=== PATIENT | female | born 1935 | race Asian ===

== ENCOUNTER 2018-04-14 09:59 | Outpatient (CLI) | payer MEDICARE, OTHER | END 2018-04-14 10:00 | disposition critical access hospital (66) | LOC: EMS 09:59 | PROVIDERS: ATTEND Surgery | DX: R42 Dizziness and giddiness (principal) | CPT/HCPCS: A0425; A0427 ==

== ENCOUNTER 2018-04-14 10:17 | Emergency (ER) | payer MEDICARE, OTHER ==
[2018-04-14] MEDS ORDERED: MECLIZINE 12.5 MG TABLET PO STA (12:07)
--- NOTE | 2018-04-14 12:09 | ED Physician Documentation ---
PD HPI FOCAL NEURO - Stated complaint Stated Complaint: N/V/WEAKNESS - Chief complaint Chief Complaint: Neuro - History obtained from History obtained from: Patient, Family - History of Present Illness Timing - onset: Today (This is an 83-year-old woman with history of vertigo for a day a few years ago. Today she was at the dentist office and he was laying her back in the recliner and she said and he felt the room spinning associated with severe nausea. She says that it gets much worse if she turns her head and refuses to turn her head because of that. It feels like the episode she had a few years ago. She denies headache, weakness, numbness, or tingling.) Review of Systems Ten Systems: 10 systems reviewed and negative Constitutional: denies: Fever, Chills Cardiac: denies: Chest pain / pressure, Palpitations Respiratory: denies: Dyspnea, Cough GI: reports: Nausea, Vomiting Neurologic: denies: Generalized weakness, Focal weakness, Numbness, Difficulty speaking, Near syncope, Syncope, Seizure, Confused, Altered mental status, Unresponsive, Headache, Head injury, LOC PD PAST MEDICAL HISTORY - Past Medical History GI: Diverticulitis - Past Surgical History Past Surgical History: No - Present Medications Home Medications: Ambulatory Orders Medication Instructions Recorded Confirmed Aspirin Chewable [St Harshil 81 mg PO ONCE 04/14/18 04/14/18 Aspirin] Meclizine HCl 25 mg PO Q6H PRN #20 tab.chew 04/14/18 Ondansetron Odt [Zofran] 4 mg TL Q6H PRN #10 tablet 04/14/18 - Allergies Allergies/Adverse Reactions: Allergies Allergy/AdvReac Type Severity Reaction Status Date / Time cephalexin monohydrate * Allergy Unknown Verified 04/14/18 10:25 [From Keflex] estrogens, conjugated Allergy Unknown Verified 04/14/18 10:25 [From Premarin] nystatin Allergy Unknown Verified 04/14/18 10:25 - Social History Does the pt smoke?: No Smoking Status: Never smoker Does the pt drink ETOH?: No PD ED PE NORMAL - Vitals Vital signs reviewed: Yes - General General: Alert and oriented X 3, No acute distress - HEENT HEENT: PERRL, EOMI - Neck Neck: Supple, no meningeal sign, No bony TTP - Cardiac Cardiac: RRR, No murmur - Respiratory Respiratory: No respiratory distress, Clear bilaterally - Abdomen Abdomen: Non tender - Neuro Neuro: Alert and oriented X 3, deputy sheriff/investigator 2-12 intact Eye Opening: Spontaneous Motor: Obeys Commands Verbal: Oriented GCS Score: 15 - Psych Psych: Normal mood, Normal affect NIHSS - Time Time: 12:05 - Level of Consciousness Level of consciousness: (0) Alert, Keenly responsive LOC Questions: (0) Answers both Q's correct LOC Commands: (0) Performs both correctly - Gaze Best Gaze: (0) Normal - Visual Visual: (0) No loss - Facial Palsy Facial Palsy: (0) Normal, symmetrical movement - Motor Arms (both separate) Motor Arm (right): (0) No drift Motor Arm (left): (0) No drift - Motor Legs (both separate) Motor Leg (right): (0) No drift Motor Leg (left): (0) No drift - Limb Ataxia Limb Ataxia: (0) Absent - Sensory Sensory: (0) Normal - Best Language Best Language: (0) No aphasia - Dysarthria Dysarthria: (0) Normal - Extinction and Inattention (formally neg Extinction and inattention: (0) No abnormality - Total Score/Results Total Score/Result: 0 Results - Vitals Vitals: Vital Signs - 24 hr 04/14/18 04/14/18 04/14/18 10:22 10:26 12:26 Temperature 35.9 C L Heart Rate 60 58 L 59 L Respiratory 12 14 14 Rate Blood Pressure 169/76 H 164/87 H 137/80 H O2 Saturation 94 99 100 Oxygen O2 Source Room air - Labs Labs: Laboratory Tests 04/14/18 04/14/18 12:00 12:00 WBC 8.6 RBC 4.04 L Hgb 12.7 Hct 37.7 MCV 93.2 MCH 31.3 H MCHC 33.6 RDW 13.2 Plt Count 174 MPV 8.2 Neut # (Auto) 7.7 H Lymph # (Auto) 0.4 L [place] # (Auto) 0.4 Eos # (Auto) 0.0 Baso # (Auto) 0.1 Absolute Nucleated RBC 0.00 Nucleated RBC % 0.0 Sodium 141 Potassium 3.6 Chloride 104 Carbon Dioxide 27 Anion Gap 10.0 BUN 12 Creatinine 0.5 Estimated GFR (MDRD) 118 Glucose 121 H Calcium 9.6 Total Bilirubin 0.8 AST 23 ALT 15 Alkaline Phosphatase 76 Total Protein 6.7 Albumin 4.1 Globulin 2.6 Albumin/Globulin Ratio 1.6 Lipase 28 PD MEDICAL DECISION MAKING - ED course ED course: This is an 83-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 It is very related to rotational changes of the head. I did not see nystagmus on initial evaluation, but after the administration of meclizine she was still pretty symptomatic so we tried the Bubba maneuver, she did develop leftward nystagmus with her left ear down with the Bubba maneuver. The Bubba maneuver was slightly helpful but she was still quite symptomatic and this was followed by a very small dose of Reglan and Ativan, Noting that she is pretty small. After this she was feeling much better, she was only slightly sedated. I will asked the nurse to get her up and walk her in the hallway and if she does well we will discharge her with prescription for meclizine and Zofran. Departure - Departure Disposition: 01 Home, Self Care Clinical Impression: Vertigo Condition: Good Record reviewed to determine appropriate education?: Yes Instructions: ED Vertigo Unspecified Prescriptions: Meclizine HCl 25 mg PO Q6H PRN #20 tab.chew PRN Reason: Dizziness Ondansetron Odt [Zofran] 4 mg TL Q6H PRN #10 tablet PRN Reason: Nausea / Vomiting Comments: Call your doctor to arrange a follow-up appointment, make the next available appointment. In the interim, return anytime if worse or if new symptoms develop. Your blood pressure was elevated today on check into the emergency department. This does not mean that you have hypertension, it is a common phenomenon to come to the emergency department and have elevated blood pressure. I recommend that you see your primary care physician within the week to have it rechecked when you are feeling better.
[2018-04-14 12:14] LABS: BASOPHILS # (AUTO) 0.1 10^3/uL (0.0-0.1); BASOPHILS % (AUTO) 0.6 %; EOSINOPHILS % (AUTO) 0.1 %; HGB - HEMOGLOBIN 12.7 g/dL (12.0-16.0); LYMPHOCYTES # (AUTO) 0.4 10^3/uL (1.5-3.5); LYMPHOCYTES % (AUTO) 5.2 %; MEAN CORPUSCULAR HEMOGLOBIN 31.3 pg (27.0-31.0); MEAN CORPUSCULAR HGB CONC 33.6 g/dL (32.0-36.0); MEAN CORPUSCULAR VOLUME 93.2 fL (81.0-99.0); MEAN PLATELET VOLUME 8.2 fL (7.9-10.8); MONOCYTES # (AUTO) 0.4 10^3/uL (0.0-1.0); MONOCYTES % (AUTO) 4.3 %; NEUTROPHILS # (AUTO) 7.7 10^3/uL (1.5-6.6); NEUTROPHILS % (AUTO) 89.8 %; PLT - PLATELET COUNT 174 10^3/uL (130-450); RED BLOOD COUNT 4.04 10^6/uL (4.20-5.40); RED CELL DISTRIBUTION WIDTH 13.2 % (12.0-15.0); WHITE BLOOD COUNT 8.6 x10^3/uL (4.8-10.8)
[2018-04-14 12:27] LABS: ALBUMIN 4.1 g/dL (3.2-5.5); ALBUMIN/GLOBULIN RATIO 1.6 (1.0-2.2); BILIRUBIN,TOTAL 0.8 mg/dL (0.2-1.0); CREATININE 0.5 mg/dL (0.4-1.0); TOTAL PROTEIN 6.7 g/dL (6.7-8.2)
[2018-04-14 13:06] LABS: CALCIUM 9.6 mg/dL (8.5-10.3)
[2018-04-14] MEDS ORDERED: LORazepam 2 MG/ML VIAL IVP STA (13:20)
[2018-04-14] MEDS ORDERED: METOCLOPRAMIDE 10 MG/2 ML VIAL IVP STA (13:20)
[2018-04-14 14:10] VITALS: BP 127/71
== END 2018-04-14 14:14 | disposition home or self-care (01) ==
LOC: EDUNIT# → ED 10:17
DX: R42 Dizziness and giddiness (principal); R03.0 Elevated blood-pressure reading, without diagnosis of hypertension
CPT/HCPCS: 36415; 80053; 83690; 85025; 96374; 99283; 99284; A9270; J2060; J2765

== ENCOUNTER 2021-11-09 15:13 | Outpatient (CLI) | payer MEDICARE, OTHER | END 2021-11-09 15:14 | disposition left against medical advice (07) | LOC: EMS 15:13 | DX: R11.0 Nausea (principal); R51.9 Headache, unspecified ==

== ENCOUNTER 2022-09-29 09:15 | Emergency (ER) | payer MEDICARE, OTHER ==
[2022-09-29 09:37] VITALS: O2SAT 98
--- NOTE | 2022-09-29 09:39 | ED Physician Documentation ---
PD HPI URI - Stated complaint Stated Complaint: COUGHING,PALOMO,DIZZY - Chief complaint Chief Complaint: General - History obtained from History obtained from: Patient - History of Present Illness Timing - onset: Last night, Yesterday Timing details: Abrupt onset, Still present Associated symptoms: Fever, Chills, Nasal congestion, Dry cough, Other (general weakness) Contributing factors: Sick contact (Her is currently hospitalized a few days ago diagnosed with pneumonia and DKA) Improves by: Rest Worsened by: Activity Similar symptoms before: Has not had sx before Review of Systems Constitutional: reports: Chills, Myalgias, Fatigue Nose: reports: Congestion Throat: denies: Sore throat Cardiac: denies: Chest pain / pressure, Palpitations, Pedal edema Respiratory: reports: Dyspnea, Cough, Wheezing GI: denies: Abdominal Pain, Vomiting, Diarrhea Musculoskeletal: denies: Extremity swelling PD PAST MEDICAL HISTORY - Past Medical History Cardiovascular: None Respiratory: None Neuro: None Endocrine/Autoimmune: None GI: Diverticulitis - Past Surgical History Past Surgical History: No - Present Medications Home Medications: Ambulatory Orders Medication Instructions Recorded Confirmed Aspirin Chewable [St Harshil 81 mg PO ONCE 04/14/18 04/14/18 Aspirin] Meclizine HCl 25 mg PO Q6H PRN #20 tab.chew 04/14/18 Ondansetron Odt [Zofran] 4 mg TL Q6H PRN #10 tablet 04/14/18 Albuterol Sulf [Ventolin Hfa 2 puffs INH QID 10 Days #1 each 09/29/22 Inhaler] Amox/Clav 875/125 [Augmentin] 1 each PO BID #10 tablet 09/29/22 Benzonatate [Tessalon] 100 mg PO TID PRN #12 cap 09/29/22 Nirmatrelvir/Ritonavir [Paxlovid] 1 kit PO BID 5 Days #1 kit 09/29/22 - Allergies Allergies/Adverse Reactions: Allergies Allergy/AdvReac Type Severity Reaction Status Date / Time cephalexin monohydrate * Allergy Unknown Verified 04/14/18 10:25 [From Keflex] estrogens, conjugated Allergy Unknown Verified 04/14/18 10:25 [From Premarin] nystatin Allergy Unknown Verified 04/14/18 10:25 - Social History Does the pt smoke?: No Smoking Status: Never smoker Does the pt drink ETOH?: No PD ED PE NORMAL - Vitals Vital signs reviewed: Yes - General General: Alert and oriented X 3, No acute distress, Well developed/nourished - HEENT HEENT: Pharynx benign - Neck Neck: Supple, no meningeal sign, No adenopathy - Cardiac Cardiac: RRR, No murmur - Respiratory Respiratory: No respiratory distress. No: Clear bilaterally (some prolonged expiratory phase. No wheezing per se. ) - Abdomen Abdomen: Soft, Non tender - Derm Derm: Normal color, Warm and dry - Extremities Extremities: No edema, No calf tenderness / cord - Neuro Neuro: Alert and oriented X 3, No motor deficit, Normal speech Results - Vitals Vitals: Vital Signs - 24 hr 09/29/22 09/29/22 09/29/22 09:24 10:26 11:03 Temperature 37 C 37 C Heart Rate 89 88 82 Respiratory 20 16 16 Rate Blood Pressure 144/83 H 140/88 H O2 Saturation 98 98 Oxygen O2 Source Room air - Labs Labs: Laboratory Tests 09/29/22 10:10 Nasal Adenovirus (PCR) NOT DETECTED Nasal B. parapertussis DNA (PCR) NOT DETECTED Nasal Coronavir 229E PCR NOT DETECTED Nasal Coronavir HKU1 PCR NOT DETECTED Nasal Coronavir NL63 PCR NOT DETECTED Nasal Coronavir OC43 PCR NOT DETECTED Nasal Enterovir/Rhinovir PCR NOT DETECTED Nasal Influenza B PCR NOT DETECTED Nasal Influenza A PCR NOT DETECTED Nasal Parainfluen 1 PCR NOT DETECTED Nasal Parainfluen 2 PCR NOT DETECTED Nasal Parainfluen 3 PCR NOT DETECTED Nasal Parainfluen 4 PCR NOT DETECTED Nasal RSV (PCR) NOT DETECTED Nasal B.pertussis DNA PCR NOT DETECTED Nasal C.pneumoniae (PCR) NOT DETECTED Guillermo Human Metapneumo PCR NOT DETECTED Nasal M.pneumoniae (PCR) NOT DETECTED Nasal SARS-CoV-2 (PCR) DETECTED A - Rads (name of study) chest xray Relevant Findings:: Prelim report reviewed (small infiltrate right base could be c/w early pneumonia. ), EMP independent interpretation of test PD Medical Decision Making - ED course Complexity details: reviewed results (Viral PCR positive for COVID. She does have CXR showing possible/likely small infitlrate right base. Concern for concurrent pneumonia. ), considered differential (Sounds like development of a viral type illness. We can test the respiratory panel and in particular for COVID. Her is in the hospital with pneumonia currently. I did not see a viral test on him. Chest x-ray shows possible early pneumonia for this patient.), d/w patient, d/w consultants intern (I did notify the Hospitlaist of the patient result, with patient permission, so that they can consider this for her who is hospitalized. ) Reviewed Lab Results: The chest x-ray has a possible right lower infiltrate. Her oxygenation is good and her vital signs are good. Breathing is adequate. No indications for hospitalization. The viral PCR test is still pending. She would be a potential candidate for Paxlovid if COVID-positive. Departure - Departure Disposition: 01 Home, Self Care Clinical Impression: COVID-19 Pneumonia Qualifiers: Pneumonia type: due to unspecified organism Laterality: right Lung location: lower lobe of lung Qualified Code(s): J18.9 - Pneumonia, unspecified organism Upper respiratory infection Qualifiers: URI type: unspecified URI Qualified Code(s): J06.9 - Acute upper respiratory infection, unspecified Condition: Stable Record reviewed to determine appropriate education?: Yes Prescriptions: Amox/Clav 875/125 [Augmentin] 1 each PO BID #10 tablet Nirmatrelvir/Ritonavir [Paxlovid] 1 kit PO BID 5 Days #1 kit Benzonatate [Tessalon] 100 mg PO TID PRN #12 cap PRN Reason: Cough Albuterol Sulf [Ventolin Hfa Inhaler] 2 puffs INH QID 10 Days #1 each Comments: Your lungs sound clear and your oxygen level is good. However your chest x-ray was read by radiologist as a possible early pneumonia on the right lower area. This could still represent a viral illness commonly. However we would usually cover with antibiotics in case of bacterial. We can improve your breathing and less coughing with the use of the albuterol inhaler 2 puffs 4 times daily. Also benzonatate can help with the cough. Stay well-hydrated. Augmentin antibiotic twice daily for a week for potential bacterial pneumonia. We did do a respiratory viral swab test. The results are still pending at this time. We can call you with the results later this morning when they are available. You can also look up the results on the patient portal. Recheck if not improving well over the next few days and return if worse. I sent your prescriptions to your preferred pharmacy. From the ER here, it would be good for you to go to the inpatient floor to your 's room as the admitting doctor/hospitalist would like to talk to you about him. Forms: PCP List Discharge Date/Time: 09/29/22 11:04
[2022-09-29] MEDS ORDERED: ALBUTEROL 1 PUFF INH STA (10:02)
[2022-09-29] MEDS ORDERED: BENZONATATE 100 MG CAPSULE PO STA (10:02)
--- NOTE | 2022-09-29 10:18 | XRAY Report ---
PROCEDURE: Chest 1 View X-Ray INDICATIONS: cough/dyspnea TECHNIQUE: One view of the chest was acquired. COMPARISON: None. FINDINGS: Surgical changes and devices: None. Lungs and pleura: No pleural effusions or pneumothorax. Small focal right basilar infiltrate. Mediastinum: Mediastinal contours appear normal. Heart size is normal. Bones and chest wall: No suspicious bony lesions. Overlying soft tissues appear unremarkable. IMPRESSION: Small focal right basilar infiltrate. Progress films are recommended until clear. Reviewed by: Adin Chua MD on 09/29/2022 10:16 AM PDT Approved by: Adin Chua MD on 09/29/2022 10:16 AM PDT Station ID: [id number]
[2022-09-29] MEDS ORDERED: AMOX/CLAV 500 MG/125 MG TABLET PO STA (10:25)
[2022-09-29 11:07] VITALS: BP 140/88
[2022-09-29 11:10] LABS: CORONAVIRUS 229E-RESP PCR NOT DETECTED; CORONAVIRUS HKU1-RESP PCR NOT DETECTED; CORONAVIRUS NL63-RESP PCR NOT DETECTED; CORONAVIRUS OC43-RESP PCR NOT DETECTED; HUMAN METAPNEUMOVIRUS NOT DETECTED; RHINOVIRUS/ENTEROVIRUS NOT DETECTED; SARS-CoV-2 -RESP PCR PANEL DETECTED
[2022-09-29 11:11] LABS: B. PARAPERTUSSIS- RESP PCR PAN NOT DETECTED; B. PERTUSSIS- RESP PCR PANEL NOT DETECTED; C. PNEUMONIAE- RESP PCR PANEL NOT DETECTED; INFLUENZA A- RESP PCR PANEL NOT DETECTED; INFLUENZA B - RESP PCR PANEL NOT DETECTED; M. PNEUMONIAE- RESP PCR PANEL NOT DETECTED; PARAINFLUENZA VIRUS 1 NOT DETECTED; PARAINFLUENZA VIRUS 2 NOT DETECTED; PARAINFLUENZA VIRUS 3 NOT DETECTED; PARAINFLUENZA VIRUS 4 NOT DETECTED; RSV- RESP PCR PANEL NOT DETECTED
== END 2022-09-29 11:04 | disposition home or self-care (01) ==
LOC: ED 09:15
DX: U07.1 COVID-19 (principal); J18.9 Pneumonia, unspecified organism
CPT/HCPCS: 71045; 87633; 94640; 99284; A9270